=== PATIENT | female | born 1960 ===

== ENCOUNTER 2017-12-23 09:17 | Emergency (ER) | payer MEDICAID, OTHER ==
[2017-12-23 09:41] VITALS: BMI 41.4
[2017-12-23 09:44] VITALS: BP 122/74; PULSE 73; RESP 20; TEMP 98.7; O2SAT 97
--- NOTE | 2017-12-23 10:29 | C.PDOC ---
History Of Present Illness Pt c/o left knee pain. 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 Time Seen by Provider: 12/23/17 10:17 Chief Complaint (Nursing): Lower Extremity Problem/Injury History Per: Patient Onset/Duration Of Symptoms: Days (about 4 months) Current Symptoms Are (Timing): Still Present Severity: Moderate Additional History Per: Prior Records Past Medical History Reviewed: Historical Data, Nursing Documentation, Vital Signs Vital Signs: Last Vital Signs Temp 98.7 F 12/23/17 09:41 Pulse 73 12/23/17 09:41 Resp 20 12/23/17 09:41 BP 122/74 12/23/17 09:41 Pulse Ox 97 12/23/17 09:41 - Medical History PMH: Diabetes, HTN, Hypercholesterolemia Surgical History: Cholecystectomy Family History: States: Unknown Family Hx - Social History Hx Tobacco Use: No Hx Alcohol Use: No Hx Substance Use: No - Immunization History Hx Tetanus Toxoid Vaccination: No Hx Influenza Vaccination: No Hx Pneumococcal Vaccination: No Review Of Systems Except As Marked, All Systems Reviewed And Found Negative. Constitutional: Negative for: Fever Cardiovascular: Negative for: Chest Pain Respiratory: Negative for: Shortness of Breath Gastrointestinal: Negative for: Vomiting, Abdominal Pain Musculoskeletal: Negative for: Neck Pain, Back Pain Neurological: Negative for: Weakness, Numbness Physical Exam - Physical Exam Appears: Non-toxic, No Acute Distress Skin: Normal Color, Warm, Dry, No Rash Head: Atraumatic, Normacephalic Eye(s): bilateral: Normal Inspection, PERRL, EOMI Neck: Normal ROM, Supple Extremity: Normal ROM, Tenderness (nonspecific soft tissue left knee), No Calf Tenderness Pulses: Left Dorsalis Pedis: Normal Neurological/Psych: Oriented x3, Normal Motor, Normal Sensation ED Course And Treatment O2 Sat by Pulse Oximetry: 97 Pulse Ox Interpretation: Normal Disposition Counseled Patient/Family Regarding: Diagnosis, Need For Followup, Rx Given - Disposition Referrals: Dannie Tinajero III, MD [Staff Provider] - Disposition: HOME/ ROUTINE Disposition Time: 10:29 Condition: STABLE Additional Instructions: Follow up with an orthopedic surgeon for further evaluation and treatment. Return to the ER if you develop redness, swelling, worsening of symptoms or if you have any other concerns. Prescriptions: Naproxen [Naprosyn] 1 tab PO BID PRN #20 tab PRN Reason: Pain Instructions: Chronic Knee Pain (DC) Forms: [employer] (H[place]er) Print Language: NAURUAN - Clinical Impression Clinical Impression: Left knee pain
[2017-12-23] MEDS ORDERED: Naproxen 550 mg Tab PO STA (10:43)
[2017-12-23] MEDS ORDERED: Naproxen 550 mg Tab PO ONE (10:48)
== END 2017-12-23 10:48 | disposition home or self-care (01) ==
LOC: C.ER 09:17
DX: M25.562 Pain in left knee (principal); E11.9 Type 2 diabetes mellitus without complications; E78.00 Pure hypercholesterolemia, unspecified; I10 Essential (primary) hypertension